=== PATIENT | male | born 1970 | race Caucasian/White ===

== ENCOUNTER → 2020-07-31 | Outpatient (CLI) | payer OTHER ==
[~2020-07-31] MED LIST: ACIPHEX; IBUPROFEN 800800 MG PO; NORFLEX100 MG PO
== END ==
LOC: SJCVCIMAG 07:49
PROVIDERS: ATTEND Internal Medicine
DX: I25.10 Atherosclerotic heart disease of native coronary artery without angina pectoris (principal); R07.89 Other chest pain; R06.00 Dyspnea, unspecified